=== PATIENT | female | born 1970 | race African-American/Black ===

== ENCOUNTER 2019-06-15 09:59 | Inpatient (IN) ==
--- NOTE | 2019-06-09 10:08 | EKG Report ---
Test Performed on : 06/09/2019 09:50:34 AM Test Reason : PAT Blood Pressure : / mmHG Vent. Rate : 065 BPM Atrial Rate : 065 BPM P-R Int : 188 ms QRS Dur : 088 ms QT Int : 428 ms P-R-T Axes : 049 013 030 degrees QTc Int : 445 ms Normal sinus rhythm. Normal ECG When compared with ECG of 04-JAN-2019 07:20, T wave amplitude has decreased in Anterior leads Confirmed by Len HUTCHISON, Lester Sepulveda ([id number]) on 06/11/2019 6:56:56 AM
[2019-06-09 10:23] LABS: URINE SOURCE CLEAN CATCH
[2019-06-09 10:50] LABS: BASO# 0.03 X1000 (0.0-0.2); BASO% 0.5 % (0.0-0.8); EOS# 0.15 X1000 (0.0-0.7); EOS% 2.7 % (0.0-10.0); HEMATOCRIT 43.8 % (37.0-47.0); HEMOGLOBIN 14.6 g/dL (12.0-16.0); LYMPH# 2.56 X1000 (1.2-3.4); LYMPH% 46.9 % (20.5-51.1); MCH 29.3 PG (27-31); MCHC 33.3 g/dL (33-37); MCV 87.8 FL (81-99); MONO# 0.53 X1000 (0.11-0.59); MONO% 9.7 % (1.7-9.3); MPV 12.2 FL (7.4-10.4); NEUT# 2.19 X1000 (1.4-6.5); NEUT% 40.2 % (42.2-75.2); PLT 183 X1000 (130-400); RBC 4.99 XMIL (4.2-5.4); RDW 13.3 % (11.5-14.5); WBC 5.46 X1000 (4.8-10.8)
[2019-06-09 10:53] LABS: INR 0.97; PROTIME 12.9 Seconds (11.0-16.0)
[2019-06-09 10:54] LABS: PTT 27.9 Seconds (22.3-41.8)
[2019-06-09 11:20] LABS: AGAP 15; BUN 10 mg/dL (8-22); CHLORIDE 103 mmol/L (98-107); COSMO 287; CREATININE 0.8 mg/dL (0.5-0.9); ESTIMATED GFR > 60; GLUCOSE 110 mg/dL (70-104); POTASSIUM 4.2 mmol/L (3.5-5.1); SODIUM 144 mmol/L (136-145); TCO2 26 mmol/L (25-35)
[2019-06-09 12:13] LABS: HEMOGLOBIN A1C 6.5 % (4.8-6.0)
[2019-06-09 12:45] LABS: BILIRUBIN URINE NEGATIVE (NEGATIVE); BLOOD URINE NEGATIVE (NEGATIVE); COLOR YELLOW; GLUCOSE URINE NEGATIVE (NEGATIVE); KETONE URINE NEGATIVE (NEGATIVE); LEUKOCYTES URINE NEGATIVE (NEGATIVE); NITRITE URINE NEGATIVE (NEGATIVE); PH URINE 6.5; PROTEIN URINE TRACE mg/dL (NEGATIVE); SP GRAVITY URINE 1.032; TURBIDITY URINE CLEAR (CLEAR); UR EPITHELIAL CELLS <10 /HPF (<10); URINE BACTERIA NEGATIVE /HPF; URINE RBC <10 /HPF (<10); URINE WBC <10 /HPF (<10); UROBILINOGEN URINE 4 mg/dL (NORMAL)
[2019-06-15] MEDS ORDERED: LYRICA ONE (10:46)
[2019-06-15] MEDS ORDERED: COLACE ONE (10:46)
[2019-06-15] MEDS ORDERED: PEPCID ONE (10:46)
[2019-06-15] MEDS ORDERED: REGLAN ONE (10:46)
[2019-06-15] MEDS ORDERED: KEFZOL 1 GM/D5W 2 GM/100 ML IVPB ONE (10:47)
[2019-06-15] MEDS ORDERED: LR 1,000 ML ONE (10:47)
[2019-06-15] MEDS ORDERED: CELEBREX ONE (10:47)
[2019-06-15] MEDS ORDERED: DIPRIVAN 1% ONE (11:21)
[2019-06-15] MEDS ORDERED: FENTANYL ONE (11:24)
[2019-06-15] MEDS ORDERED: SODIUM CHLORIDE 0.9% 10 ML ONE (11:26)
[2019-06-15] MEDS ORDERED: NORCURON ONE (11:26)
[2019-06-15] MEDS ORDERED: XYLOCAINE-MPF 2% ONE (11:26)
[2019-06-15] MEDS ORDERED: QUELICIN (DOSE) ONE (11:26)
[2019-06-15] MEDS ORDERED: TORADOL ONE (11:39)
[2019-06-15] MEDS ORDERED: DURAMORPH ONE (11:39)
[2019-06-15] MEDS ORDERED: MARCAINE 0.25% PF ONE (11:39)
[2019-06-15] MEDS ORDERED: SODIUM CHLORIDE 0.9% ONE (11:40)
[2019-06-15] MEDS ORDERED: VANCOMYCIN ONE (11:40)
[2019-06-15] MEDS ORDERED: CYKLOKAPRON 1,000 MG/NS 2,000 MG/200 ML IVPB ONE (11:40)
[2019-06-15] MEDS ORDERED: OFIRMEV 1000 MG/ISOTONIC SOLN 1,000 MG/100 ML BOTTLE ONE (14:09)
[2019-06-15] MEDS ORDERED: ZOFRAN ONE (14:29)
[2019-06-15] MEDS ORDERED: DECADRON ONE (14:29)
[2019-06-15 16:02] LABS: URINE SOURCE CATH
[2019-06-15 16:10] LABS: BILIRUBIN URINE NEGATIVE (NEGATIVE); BLOOD URINE NEGATIVE (NEGATIVE); CLARITY CLEAR (CLEAR); COLOR YELLOW; GLUCOSE URINE NEGATIVE (NEGATIVE); KETONE URINE TRACE mg/dL (NEGATIVE); LEUKOCYTES URINE NEGATIVE (NEGATIVE); NITRITE URINE NEGATIVE (NEGATIVE); PH URINE 5.5; PROTEIN URINE NEGATIVE (NEGATIVE); SP GRAVITY URINE >= 1.030; UROBILINOGEN URINE 0.2 EU/dL (0.2-1.0)
[2019-06-15] MEDS ORDERED: NS 1,000 ML ONE (16:20)
[2019-06-15] MEDS: DILAUDID ONE ×4 (16:29→17:07)
[2019-06-15 16:36] LABS: URINE EPITHELIAL CELLS <10 /HPF (<10); URINE RBC <10 /HPF (<10); URINE WBC <10 /HPF (<10)
[2019-06-15] MEDS: PHENERGAN ONE ×2 (16:40→17:00)
[2019-06-15] MEDS ORDERED: OXY IR ONE (17:15)
--- NOTE | 2019-06-15 17:39 | Diag Imaging Result Doc PS360 ---
EXAM: KNEE 1-2 VIEWS-LEFT INDICATION: post op total knee revision TECHNIQUE: 2 views COMPARISON: 03/31/2018 FINDINGS: There has been a recent left knee arthroplasty revision. The new hardware is in the expected position. There is no evidence of periprosthetic fracture. Anterior skin melvi and a drainage catheter are in place. IMPRESSION: Satisfactory postoperative knee. Electronically signed by Will Ojead 06/15/2019 5:36 PM
[2019-06-15] MEDS ORDERED: OXY IR PO PRN (17:45)
[2019-06-15] MEDS ORDERED: ZOFRAN IV PRN (17:45)
[2019-06-15] MEDS ORDERED: ZOFRAN ODT PO PRN (17:45)
[2019-06-15] MEDS ORDERED: MORPHINE IV PRN ×3 (17:45)
[2019-06-15] MEDS: NS 1,000 ML IV SCH (18:08)
[2019-06-15] MEDS: ULTRAM PO SCH ×2 (18:57→21:01)
[2019-06-15] MEDS ORDERED: VENTOLIN HFA INH PRN (19:40)
[2019-06-15] MEDS ORDERED: CATAPRES PO PRN (19:40)
--- NOTE | 2019-06-15 20:04 | OPERATIVE NOTE ---
PROCEDURE DATE: 06/15/2019 PREOPERATIVE DIAGNOSIS: Painful left total knee. POSTOPERATIVE DIAGNOSIS: Painful left total knee. PROCEDURE: Revision left total knee replacement. SURGEON: Steven Antoine MD. NEWS PRODUCTION SUPERVISOR: ILAN Lynn. Mr. Burdick was necessary for proper retraction and manipulation of the leg during the case. ANESTHESIA: General. COMPLICATIONS: None. PROCEDURE IN DETAIL: A 48-year-old female presents for revision left knee replacement. Risks, benefits, and no guarantees were discussed and she is willing to proceed. She was taken to the operating room, and satisfactory anesthesia obtained. The left knee was prepped and draped in usual sterile fashion. A time-out was taken to confirm operative site, procedure, and patient. The leg was wrapped with an Esmarch, and tourniquet inflated to 400 mmHg. The previous incision was utilized along the anterior aspect of the knee and dissection carried down through the skin. The joint capsule was entered through a medial arthrotomy. Joint fluid was noted, which was clear and normal in appearance. Cultures were taken for aerobic and anaerobic cultures. Joint capsule incision was extended, and the patella subluxed laterally and the knee flexed. The implant was visualized with no significant signs of obvious loosening or wear. Femoral implant was removed using a Gigli saw and osteotomes to loosely separate the implant and cement mantle from the bone. Extraction of the femoral implant was achieved with minimal bone destruction. Tissue samples of the synovium were taken adjacent to the implant for review. Afterwards, the tibial poly was removed by using osteotome to amputate the post of the tibial poly and to allow removal of the tibial poly. Both parts of the tibial poly were inspected with minimal wear. The tibial tray was then removed by using osteotomes around the periphery of the tibial tray to gently loosen it from the cement mantle. This was retrieved, and the excess cement along the tibia removed with a saw or rongeur. Sequential reaming of the metaphyseal shafts and diaphysis of the femur and tibia was undertaken, the femur up to a size 16 and tibia up to a 14 stem. Broaching of the tibia was undertaken with the metaphyseal sleeve up to a 45 sleeve. A 2.5 Sigma femoral TC3/NBT revision tibial tray was selected with the 45 metaphyseal sleeve and a 75 x 14 stem. This was seated in the tibia and tibial resection made along the area to flatten the surface of the bone. With the tibial implant, then a femoral trial was built and the femoral cutting block secured in the distal femur and the Cham[place] cut sequentially made as well as the notch for the femoral implant. A 2.5 TC3 femur with left posterior stabilized design was assembled onto a 16 x 75 stem with a 45 metaphyseal sleeve attached to the femur. Trial reduction was performed and good stability noted with a 17 mm thick polyethylene bearing. After adequate trialing the trial components were removed, and the permanent implants built on the back table and assembled. The joint and the bony surfaces was thoroughly irrigated with pulsatile followed by irrigation with Vashe for antibacterial purposes. Cement with a gram of vancomycin was then utilized to cement a 2.5 tibial tray with the attach metaphyseal sleeve in stem onto the tibia. Excess cement was removed with a [place] elevator. A 2.5 left TC3 femoral component attached to the sleeve and metaphyseal sleeve and stem was assembled and inserted onto the femur. Excess cement was removed with a [place] elevator. After curing the cement, the joint capsule was injected with Exparel for pain management. A 17 mm thick poly to match the femoral implant was secured into the tibial tray and the knee reduced. Final range of motion was 0 to 120 degrees with midline patellar tracking. The patellar button was inspected and noted to be intact without any wear or loosening. The wound was then copiously irrigated with irrigant followed by Vashe. It was closed over a drain, brought out through the lateral retinaculum with #1 Vicryl in the deep fascia, 2-0 Vicryl in the subcutaneous and skin melvi on the skin edges. Sterile dressings completed the closure and the patient was recovering from anesthesia and transferred to the recovery room in stable condition. No intraoperative complications were noted. Instrument count and sponge count was correct at the time of closure. cc: Will Antoine MD
[2019-06-15] MEDS: PERIDEX MT SCH (21:00)
[2019-06-15] MEDS: KEFZOL 2 GM/D5W 2 GM/50 ML IVPB IV SCH (21:00)
[2019-06-15] MEDS: TYLENOL PO SCH (21:01)
[2019-06-15] MEDS: CELEBREX PO SCH (21:01)
[2019-06-15] MEDS: COLACE PO SCH (21:02)
--- NOTE | 2019-06-15 21:13 | ORTHOPAEDICS PROGRESS NOTE ---
DATE: 06/15/2019 SUBJECTIVE: Ms. Orozco is seen in the recovery room. Currently, she is stable with vital signs. She awakens easily. She reports some mild discomfort over the knee. She is able move the toes up and downgoing. X-ray showed good alignment of her revision knee. ASSESSMENT AND PLAN: Clinically she is stable and will be transferred to the floor soon. We will plan on mobilizing her and transferring her home later this week. cc: Will Antoine MD
[2019-06-15 21:17] LABS: URINE SOURCE CATH
[2019-06-15] MEDS: DULERA 100 MCG/5 MCG INHALER INH PRN (21:26)
[2019-06-15 21:34] LABS: BILIRUBIN URINE NEGATIVE (NEGATIVE); BLOOD URINE NEGATIVE (NEGATIVE); COLOR YELLOW; GLUCOSE URINE NEGATIVE (NEGATIVE); KETONE URINE TRACE mg/dL (NEGATIVE); LEUKOCYTES URINE NEGATIVE (NEGATIVE); NITRITE URINE NEGATIVE (NEGATIVE); PROTEIN URINE 50 mg/dL (NEGATIVE); SP GRAVITY URINE 1.032; TURBIDITY URINE CLEAR (CLEAR); UR EPITHELIAL CELLS <10 /HPF (<10); URINE BACTERIA NEGATIVE /HPF; URINE RBC <10 /HPF (<10); URINE WBC <10 /HPF (<10); UROBILINOGEN URINE NORMAL (NORMAL)
[2019-06-16] MEDS: OXY IR PO PRN ×3 (01:23→13:41)
[2019-06-16] MEDS: ULTRAM PO SCH ×5 (05:33→23:16)
[2019-06-16] MEDS: KEFZOL 2 GM/D5W 2 GM/50 ML IVPB IV SCH (05:33)
[2019-06-16] MEDS: TYLENOL PO SCH ×4 (05:34→23:17)
[2019-06-16 06:50] LABS: HEMATOCRIT 36.5 % (37.0-47.0); HEMOGLOBIN 12.2 g/dL (12.0-16.0)
[2019-06-16 07:09] LABS: AGAP 12; BUN 11 mg/dL (8-22); CALCIUM 8.6 mg/dL (8.8-10.2); CHLORIDE 102 mmol/L (98-107); COSMO 280; ESTIMATED GFR > 60; GLUCOSE 261 mg/dL (70-104); POTASSIUM 4.3 mmol/L (3.5-5.1); SODIUM 136 mmol/L (136-145); TCO2 22 mmol/L (25-35)
[2019-06-16] MEDS: DULERA 100 MCG/5 MCG INHALER INH PRN ×2 (07:44→21:35)
[2019-06-16] MEDS: NORVASC PO SCH (09:09)
[2019-06-16] MEDS: LIPITOR PO SCH (09:09)
[2019-06-16] MEDS: PERIDEX MT SCH ×2 (09:09→21:47)
[2019-06-16] MEDS: COLACE PO SCH ×2 (09:09→21:47)
[2019-06-16] MEDS: CELEBREX PO SCH ×2 (09:09→21:47)
[2019-06-16] MEDS: ASPIRIN PO SCH (09:09)
[2019-06-16] MEDS: PEPCID PO SCH (09:09)
--- NOTE | 2019-06-16 09:30 | ORTHOPAEDICS PROGRESS NOTE ---
DATE: 06/16/2019 Ms Orozco is seen status post revision knee replacement. Currently, she is afebrile with stable vital signs. The bandage is clean and dry. She is motor and sensory intact with no signs of DVT. We will plan on mobilizing her today and discontinuing all lines. We will consider discharge if she is doing well today, however, likely be tomorrow. We will check on her mid afternoon to see how she is doing. cc: Will Antoine MD
[2019-06-16] MEDS: NS 1,000 ML IV SCH (17:21)
[2019-06-16] MEDS: MILK OF MAGNESIA PO PRN (23:16)
[2019-06-17] MEDS: ULTRAM PO SCH ×2 (06:54→14:31)
[2019-06-17] MEDS: TYLENOL PO SCH ×2 (06:54→14:31)
[2019-06-17 06:58] LABS: HEMATOCRIT 31.3 % (37.0-47.0); HEMOGLOBIN 10.4 g/dL (12.0-16.0)
[2019-06-17] MEDS: DULERA 100 MCG/5 MCG INHALER INH PRN (07:36)
[2019-06-17] MEDS: LIPITOR PO SCH (08:31)
[2019-06-17] MEDS: CELEBREX PO SCH (08:31)
[2019-06-17] MEDS: PEPCID PO SCH (08:32)
[2019-06-17] MEDS: COLACE PO SCH (08:32)
[2019-06-17] MEDS: NORVASC PO SCH (08:32)
[2019-06-17] MEDS: ASPIRIN PO SCH (08:32)
[2019-06-17] MEDS: PERIDEX MT SCH (08:32)
[2019-06-17] MEDS: MILK OF MAGNESIA PO PRN (08:39)
[2019-06-17] MEDS: OXY IR PO PRN ×2 (10:40→15:37)
[2019-06-17 13:12] VITALS: BP 148/78
--- NOTE | 2019-06-18 04:59 | DISCHARGE SUMMARY ---
ADMISSION DATE: 06/15/2019 DISCHARGE DATE: 06/17/2019 ADMITTING DIAGNOSIS: Degenerative joint disease of the left knee. DISCHARGE DIAGNOSIS: Degenerative joint disease of left knee with left total knee arthroplasty. PRINCIPLE PROCEDURES: Left total knee arthroplasty. PAST MEDICAL HISTORY: Includes anemia, hypertension, high cholesterol, osteoarthritis. HOSPITAL COURSE: The patient was taken to the operating room on 06/15/2019 and a left total knee arthroplasty was performed. She tolerated the procedure well. She was taken to the recovery room. She did well in recovery and was brought to the surgical floor. Mechanical DVT prophylaxis was initiated as well as chemical DVT prophylaxis. Routine postop antibiotics were administered. Hemovac drain was discontinued on postop day 2. There was roughly 50 does 60 mL of drainage in her drain. Physical therapy was initiated and the patient did develop some dizziness the 1st day. We decided to keep the patient another night in the hospital to make sure she was doing okay. The patient did walk about 50 feet today and tolerated therapy well. She did not have any more episodes of dizziness. She was able to spontaneously void. She transitioned to oral pain medication. The patient was felt ready to be discharged on 06/17/2019. There was no pain with calf squeeze. Her bandages have been clean and dry. The patient has good sensation to the left lower extremity and pedal pulses. There is good capillary refill. DISPOSITION: Patient is going to be discharged to home. FOLLOWUP: She is to follow up with Dr. Antoine in about 10 days to get her melvi removed. Prescriptions were written for [place] and aspirin for pain and DVT prophylaxis. We have also given her a prescription for Bactrim twice daily to prevent infection. She also decided to go to outpatient rehab. We have written her a prescription for physical therapy with full weightbearing and left total knee arthroplasty rehab. DISCHARGE INSTRUCTIONS: Home with outpatient therapy at this time. ALLERGIES: The patient is allergic to Levaquin. Dictated by ILAN Lynn for Will Antoine MD cc: ILAN Lynn MD
== END 2019-06-17 17:10 | disposition home or self-care (01) | DRG 467 ==
LOC: SURHOLD 09:59 → 4N 15:17
PROVIDERS: ADMIT Orthopaedic Surgery Adult Reconstructive Orthopaedic Surgery; ATTEND Orthopaedic Surgery Adult Reconstructive Orthopaedic Surgery